=== PATIENT | male | born 1995 | race Caucasian/White ===

== ENCOUNTER 2019-01-05 20:31 | Emergency (ER) | payer BC ==
--- NOTE | 2019-01-05 22:49 | ED ---
GI/ HPI - HPI Summary HPI Summary: This pt is a 23 Y/O M presenting to [facility] with a CC of testicular pain that is currently rated a 5/10 in severity and states that the pain alternates from his right and left sides. He states that the onset was 6 weeks ago with the R side and was rated a 1-2 in severity. 2 weeks ago the pain increased to a 2-3 and the pain started alternating between sides. The pain increased again today to a 4-5 in severity. He states that the pain radiates down the sides of his legs bilaterally. He states that he has not had any urinary symptoms, bloody discharge, or erectile dysfunction. He states that he has had increased pain with erections. He denies any fevers, chills, N/V, and abdominal pain. He states no alleviating factors. He has no pertinent PMHx. - History of Current Complaint Chief Complaint: EDUrogenitalProblems Time Seen by Provider: 01/05/19 22:30 Stated Complaint: TESTICLE PAIN PER PT Hx Obtained From: Patient Onset/Duration: Started Weeks Ago - 6, Worse Since - 2 weeks ago Timing: Constant Severity: Moderate Current Severity: Moderate Pain Intensity: 5 Additional Locations for Males: Testicles - alternating between right and left sides Associated Signs and Symptoms: Negative: Nausea, Vomiting, Discharge, Fever, Chills, Abdominal Pain Additional Signs & Symptoms: Negative: Penile Discharge Aggravating Factor(s): [address] - states that erection causes increased pain Alleviating Factor(s): Nothing - Allergy/Home Medications Allergies/Adverse Reactions: Allergies Allergy/AdvReac Type Severity Reaction Status Date / Time No Known Allergies Allergy Verified 01/05/19 20:37 PMH/Surg Hx/FS Hx/Imm Hx Previously Healthy: Yes Endocrine/Hematology History: Denies: Hx Diabetes Cardiovascular History: Denies: Hx Hypertension Respiratory History: Denies: Hx Asthma Sensory History: Denies: Hx Contacts or Glasses Opthamlomology History: Denies: Hx Contacts or Glasses - Surgical History Surgical History: None Infectious Disease History: No Infectious Disease History: Denies: Traveled Outside the [place] in Last 30 Days - Family History Known Family History: Positive: Cardiac Disease, Diabetes, Other - [place] - Social History Occupation: Student - [employer] Lives: Dormitory/Roommates Alcohol Use: None Hx Substance Use: No Substance Use Type: Reports: None Hx Tobacco Use: No Smoking Status (MU): Never Smoked Tobacco Household Exposure: No Review of Systems Negative: Fever, Chills Negative: Abdominal Pain, Vomiting, Nausea Positive: pain - testicular pain that alternates R and L sides . Negative: dysuria, discharge All Other Systems Reviewed And Are Negative: Yes Physical Exam - Summary Physical Exam Summary: Appearance: Well-appearing, Well-nourished, lying in bed comfortably Skin: Warm, dry, no obvious rash Eyes: sclera anicteric, no conjunctival pallor ENT: mucous membranes moist, pharynx appears normal Neck: Supple, nontender Respiratory: Clear to auscultation, no signs of respiratory distress Cardiovascular: Normal S1, S2. No murmurs. Normal distal pulses in tibial and radial bilaterally. Abdomen: Soft, nontender, normal active bowel sounds present Musculoskeletal: Normal, Strength/ROM Intact Neurological: A&Ox3, awake and alert, mentation is normal, speech is fluent and appropriate Psychiatric: affect is normal, does not appear anxious or depressed : normal penis, no discharge noted. No masses noticed on the groins. Testicles have normal lie without tenderness, focal masses, or swelling. Triage Information Reviewed: Yes Vital Signs On Initial Exam: Initial Vitals Temp Pulse Resp BP Pulse Ox 98 F 73 16 152/103 100 01/05/19 20:33 01/05/19 20:33 01/05/19 20:33 01/05/19 20:33 01/05/19 20:33 Vital Signs Reviewed: Yes Procedures - Sedation Patient Received Moderate/Deep Sedation with Procedure: No Diagnostics - Vital Signs Vital Signs Temp Pulse Resp BP Pulse Ox 01/05/19 20:33 98 F 73 16 152/103 100 - Laboratory Lab Statement: Any lab studies that have been ordered have been reviewed, and results considered in the medical decision making process. - Ultrasound Testicular US Ultrasound Interpretation Completed By: Radiologist Summary of Ultrasound Findings: 1. Trace bilateral hydroceles. 2. Otherwise negative testicular sonogram with bilateral blood flow. No. torsion. ED physician has reviewed this report. GIGU Course/Dx - Course Course Of Treatment: This pt is a 23 Y/O M presenting to [facility] with a CC of testicular pain that is currently rated a 5/10 in severity and states that the pain alternates from his right and left sides. He states that the onset was 6 weeks ago with the R side and was rated a 1-2 in severity. 2 weeks ago the pain increased to a 2-3 and the pain started alternating between sides. The pain increased again today to a 4-5 in severity. He states that the pain radiates down the sides of his legs bilaterally. He denies any penial discharge. His PE found that he has a normal penis, no discharge noted. No masses noticed on the groins. Testicles have normal lie without tenderness, focal masses, or swelling. His Testicular US found the followin. Trace bilateral hydroceles. 2. Otherwise negative testicular sonogram with bilateral blood flow. No. torsion. He will be discharged home with a Dx of testicular pain and will be discharged home and instructed to keep his appointment with Dr. Roberson. - Diagnoses Provider Diagnoses: Testicular/scrotal pain Discharge ED - Sign-Out/Discharge Documenting (check all that apply): Patient Departure - discharge - Discharge Plan Condition: Good Disposition: HOME Patient Education Materials: Testicle Pain (ED) Referrals: [facility] [place] [Primary Care Provider] - Jeffery Reed MD [Medical Doctor] - - Billing Disposition and Condition Condition: GOOD Disposition: Home - Attestation Statements Document Initiated by Scribe: Yes Documenting Scribe: Avi Tucker Provider For Whom Henrryibstu is Documenting (Include Credential): Luciano Frazier MD Scribe Attestation: Avi Brannon, scribed for Luciano Frazier MD on 01/06/19 at 0631. Scribe Documentation Reviewed: Yes Provider Attestation: The documentation as recorded by the Avi jacobs accurately reflects the service I personally performed and the decisions made by , Luciano Frazier MD Status of Scribe Document: Viewed
[2019-01-05 23:19] VITALS: BP 127/90
[2019-01-05 23:30] LABS: Urine Appearance Clear; Urine Bilirubin Negative (Negative); Urine Blood Negative (Negative); Urine Color Yellow; Urine Glucose Negative (Negative); Urine Ketones Negative (Negative); Urine Nitrite Negative (Negative); Urine Protein Negative (Negative); Urine Specific Gravity 1.019 (1.010-1.030); Urine Urobilinogen Negative (Negative)
== END 2019-01-05 23:18 | disposition home or self-care (01) ==
LOC: ED 20:31
DX: N50.812 Left testicular pain (principal); N50.811 Right testicular pain; N50.82 Scrotal pain; N48.89 Other specified disorders of penis; N43.3 Hydrocele, unspecified
CPT/HCPCS: 76870; 81003; 99282